=== PATIENT | female | born 1950 | race Caucasian/White ===

== ENCOUNTER 2022-12-31 09:57 | Emergency (ER) | payer MEDICARE ==
[2022-12-31] MEDS ORDERED: Ketorolac 30 MG/ML SDV IM ONE (10:01)
== END 2022-12-31 10:57 | disposition home or self-care (01) ==
LOC: CC.ED 09:57
DX: S20.212A Contusion of left front wall of thorax, initial encounter (principal); Z91.040 Latex allergy status; Z79.899 Other long term (current) drug therapy; W19.XXXA Unspecified fall, initial encounter; W22.8XXA Striking against or struck by other objects, initial encounter
CPT/HCPCS: 71100-LT; 96372; 99283; J1885